=== PATIENT | female | born 1975 | race Hispanic/Latino ===

== ENCOUNTER → 2021-11-18 14:39 | Outpatient (CLI) | payer SELFPAY ==
--- NOTE | 2021-11-18 14:57 | DI.US.S_ITS ---
PROCEDURE: US THYROID INDICATIONS: NODULE TECHNIQUE: Real-time scanning was performed of the thyroid gland, with image documentation. COMPARISON: None. FINDINGS: Right: Thyroid lobe measures 4.8 x 2.3 x 1.7 cm, and is diffusely heterogeneous, without focal nodules. Left: Thyroid lobe measures 4.5 x 1.2 x 1.2 cm, and is homogenous in echotexture. Isthmus: 1.4 mm thick. IMPRESSION: There is thyroid lobe is diffusely heterogeneous, yet without a focal nodule seen. If clinically appropriate, the right thyroid itself could be biopsied. ACR TI-RADS definitions and recommendations: TI-RADS 1 (benign): 0 points. FNA not needed. TI-RADS 2 (not suspicious): 2 points. FNA not needed. TI-RADS 3 (mildly suspicious): 3 points. * FNA if 2.5 cm or larger, follow up if 1.5 cm or larger (at 1, 3, and 5 years). TI-RADS 4 (moderately suspicious): 4-6 points. * FNA if 1.5 cm or larger, follow up if 1 cm or larger (at 1, 2, 3, and 5 years). TI-RADS 5 (highly suspicious): 7 points or more. * FNA if 1 cm or larger, follow up if 0.5 cm or larger (every year for 5 years). Dictated by: Lee Delgadillo M.D. on 11/18/2021 at 16:10 Approved by: Lee Delgadillo M.D. on 11/18/2021 at 16:13
== END ==
PROVIDERS: Family Provider Nurse Practitioner; Referring Provider Nurse Practitioner; Visit Provider Nurse Practitioner
DX: E04.2 Nontoxic multinodular goiter (principal)
CPT/HCPCS: 76536